=== PATIENT | male | born 1990 | race Caucasian/White ===

== ENCOUNTER 2018-06-23 04:24 | Emergency (ER) | payer MEDICAID ==
[~2018-06-23] VITALS: Ht 175.3 cm; Wt 85.0 kg
[2018-06-23 04:26] VITALS: Ht 175.3 cm; Wt 85.0 kg
[2018-06-23] MEDS ORDERED: ZANAFLEX4 MG PO (04:30)
[2018-06-23] MEDS ORDERED: CARAFATE1 G PO (04:30)
[2018-06-23] MEDS ORDERED: PROTONIX40 MG PO (04:30)
[2018-06-23] MEDS ORDERED: LEXAPRO10 MG PO (04:30)
[2018-06-23] MEDS ORDERED: TRIUMEQ TABLET1 EACH PO (04:30)
[2018-06-23 04:51] LABS: BASOPHILS 0.1 % (0-2); EOSINOPHILS 0.9 % (0-7); HEMATOCRIT 37.7 % (42.0-54.0); HEMOGLOBIN 12.1 g/dL (13.5-17.5); IMMATURE GRANULOCYTES 0.3 % (0-5); LYMPHOCYTES 36.8 % (15-50); MCH 27.4 pg (26.0-34.0); MCHC 32.1 g/dL (31.0-37.0); MCV 85.5 fL (80.0-100.0); MEAN PLATELET VOLUME 11.5 fL (7.4-10.4); MONOCYTES 7.5 % (2-11); NEUTROPHILS 54.4 % (40-80); PLATELET COUNT 152 10x3/uL (130-400); RBC 4.41 10x6/uL (4.20-6.10); RDW 15.2 % (11.5-14.5); WBC 6.9 10x3/uL (4.8-10.8)
[2018-06-23 05:18] LABS: ALBUMIN 3.5 g/dL (3.4-5.0); ANION GAP 11.8 mmol/L (8-16); BILIRUBIN - TOTAL 0.19 mg/dL (0.2-1.3); CALCIUM 8.4 mg/dL (8.5-10.1); CARBON DIOXIDE 27.8 mmol/L (21.0-32.0); CREATININE - SERUM 1.4 mg/dL (0.6-1.3); POTASSIUM - SERUM 3.6 mmol/L (3.5-5.1); PROTEIN - SERUM 7.3 g/dL (6.4-8.2)
[2018-06-23 05:20] LABS: TROPONIN-I 0.019 ng/mL (0.000-0.060)
[2018-06-23 05:34] LABS: APPEARANCE CLEAR (CLEAR); BILIRUBIN NEGATIVE (NEGATIVE); COLOR YELLOW (YELLOW); GLUCOSE NEGATIVE (NEGATIVE); KETONE NEGATIVE (NEGATIVE); NITRITE NEGATIVE (NEGATIVE); PROTEIN NEGATIVE (NEGATIVE); UROBILINOGEN NORMAL (NORMAL)
[2018-06-23] MEDS ORDERED: ZOFRAN ODT4 MG/UDTAB PO (06:47)
[2018-06-23 08:03] VITALS: BP 138/93
== END 2018-06-23 07:41 | disposition home or self-care (01) ==
LOC: D.ER 04:24
PROVIDERS: Family Medicine
DX: F13.239 Sedative, hypnotic or anxiolytic dependence with withdrawal, unspecified (principal); R10.9 Unspecified abdominal pain; R11.2 Nausea with vomiting, unspecified; G40.909 Epilepsy, unspecified, not intractable, without status epilepticus; E11.9 Type 2 diabetes mellitus without complications; F17.200 Nicotine dependence, unspecified, uncomplicated